=== PATIENT | female | born 1985 ===

== ENCOUNTER 2018-12-08 10:06 | Emergency (ER) | payer MEDICAID ==
[2018-12-08 10:16] VITALS: BMI 34.9
[2018-12-08 10:18] VITALS: RESP 18; TEMP 98.5
--- NOTE | 2018-12-08 11:05 | ED PDOC ---
Arrival/HPI - General Chief Complaint: ENT Problem Time Seen by Provider: 12/08/18 10:07 - History of Present Illness Narrative History of Present Illness (Text): 43 year old female with no significant past medical history presents to the emergency department complaining of sore throat and left ear pain x three days. Patient states that the pain in her left ear and throat is constant and the pain in her throat is worse with swallowing. She has not taken any medication for pain. Associated subjective fever yesterday. Denies hearing loss, tinnitus, ear fullness, vertigo, drooling, shortness of breath, chest pain, throat swelling, nausea, vomiting, dizziness, headache, neck pain or stiffness, back pain, or any other associated symptoms Past Medical History - Infectious Disease Hx of Infectious Diseases: None - Pulmonary Hx Asthma: Yes - Psychiatric Hx Substance Use: No - Surgical History Hx Appendectomy: Yes Hx Section: Yes (x1) Hx Tonsillectomy: Yes - Anesthesia Hx Anesthesia: Yes Hx Anesthesia Reactions: No Hx Malignant Hyperthermia: No Family/Social History Smoking Status: Never Smoked Hx Alcohol Use: Yes Frequency of alcohol use: Socially Hx Substance Use: No Allergies/Home Meds Allergies/Adverse Reactions: Allergies latex Allergy (Verified 12/08/18 10:17) SWELLING tramadol Allergy (Verified 12/08/18 10:17) NAUSEA paranoia Physical Exam Vital Signs Temp Pulse Resp BP Pulse Ox 12/08/18 10:17 98.5 F 99 H 18 105/69 100 Disposition/Present on Arrival - Present on Arrival Any Indicators Present on Arrival: No History of DVT/PE: No History of Uncontrolled Diabetes: No Urinary Catheter: No History of Decub. Ulcer: No History Surgical Site Infection Following: None - Disposition Have Diagnosis and Disposition been Completed?: Yes Diagnosis: Otitis media, Pharyngitis Disposition: HOME/ ROUTINE Disposition Time: 11:35 Patient Plan: Discharge Condition: STABLE Discharge Instructions (ExitCare): Ear Infections (Otitis Media), Sore Throat, Adult (DC) Additional Instructions: Augmentin every 12 hours for 7 days Cepacol as needed Increase fluids Rest, no strenuous activity Followup with ENT within 2 days Return to ER with any new/worsening symptoms Prescriptions: Amoxicillin/Clavulanate [Augmentin 875 MG-125 MG] 1 tab PO Q12H 7 Days #14 tab Benzocaine/Menthol [Cepacol Sore Throat] 1 olamide MM Q4 PRN #12 olamide PRN Reason: Sore Throat Referrals: [facility] [place] - Follow up with primary Korey Ware DO [Staff Provider] - Follow up with primary Kristina Hobbs MD [Medical Doctor] - Follow up with primary Forms: [facility] ([place]an), WORK NOTE
[2018-12-08] MEDS ORDERED: Amoxicillin-Clav 875-125 mg Tab PO STA (11:16)
[2018-12-08 11:43] VITALS: BP 111/68; PULSE 92; O2SAT 98
== END 2018-12-08 11:42 | disposition home or self-care (01) ==
LOC: MERGE 10:06 → ED 10:06
DX: J02.9 Acute pharyngitis, unspecified (principal); H66.90 Otitis media, unspecified, unspecified ear